=== PATIENT | female | born 1995 | race American Indian/Alaskan Native ===

== ENCOUNTER 2023-12-13 09:57 | Emergency (ER) | payer OTHER ==
[~2023-12-13] VITALS: Ht 172.7 cm; Wt 154.5 kg
[2023-12-13 10:00] VITALS: TEMP 98.2
[2023-12-13] MEDS ORDERED: NS 1,000 ML IV ONE (10:30)
[2023-12-13] MEDS ORDERED: diphenhydrAMINE 50 MG/ML 1 ML VIAL IV ONE (10:30)
[2023-12-13] MEDS ORDERED: methylPREDNISolone Sod Succ 125 MG/2 ML VIAL IV ONE (10:30)
[2023-12-13] MEDS ORDERED: PREDNISONE20 MG PO (11:46)
[2023-12-13 12:04] VITALS: BP 120/61; PULSE 55
== END 2023-12-13 12:16 | disposition home or self-care (01) ==
LOC: COL.ER 09:57
PROVIDERS: Physician Assistant
DX: T78.40XA Allergy, unspecified, initial encounter (principal); X58.XXXA Exposure to other specified factors, initial encounter
CPT/HCPCS: J1200; J2919; J7030